=== PATIENT | male | born 1960 | race Caucasian/White ===

== ENCOUNTER 2019-01-29 00:38 | Outpatient (CLI) | payer OTHER, SELFPAY ==
[2019-01-29 09:46] LABS: ALT 53 U/L (12-78); AST 22 U/L (15-37); Alkaline Phosphatase 60 U/L (46-116); Anion Gap 5.6 mmol/L (3-11); BUN 18 mg/dL (7-18); Bilirubin, Total 0.7 mg/dL (0.2-1.0); CO2 30.4 mmol/L (21.0-32.0); CREATININE 0.78 mg/dL (0.70-1.30); Calcium 8.5 mg/dL (8.5-10.1); Calculated LDL 83 mg/dL; Chloride 104 mmol/L (98-107); Cholesterol 130 mg/dL (50-200); Glucose 108 mg/dL (70-100); HDL Cholesterol 39 mg/dL (40-60); Potassium 4.6 mmol/L (3.5-5.1); Sodium 140 mmol/L (136-145); Total Protein 6.9 g/dL (6.4-8.2); Triglyceride 42 mg/dL (30-150)
== END 2019-01-29 00:58 ==
PROVIDERS: PCP Family Medicine; Visit Provider Family Medicine
DX: F90.9 Attention-deficit hyperactivity disorder, unspecified type (principal); Z00.00 Encounter for general adult medical examination without abnormal findings; I10 Essential (primary) hypertension
CPT/HCPCS: 36415; 80053; 80061; 83721

== ENCOUNTER 2020-06-20 01:58 | Outpatient (CLI) | payer MEDICAID, SELFPAY ==
--- OUTSIDE RECORDS SUMMARY | 2020-06-20 01:59 | XMS_ITS ---
:1960 Author Organization [facility] Address [address] [place] [address] Care Team Providers Name Role Phone Marlin Escobar Unavailable Unavailable PROBLEMS Type Condition ICD9-CM Code [id number] Code Onset Condition SNO MED Code Dates Status Problem Onychia and 681.11 Active 70992276 paronychia of toe Problem Callus 700 Active 010210675 Problem Ingrown toenail 703.0 Active 4002 [id number] ALLERGIES Substance Reaction Event Type Date Status penicillin Unknown Non Drug Allergy Mar, Active Shellfish Unknown Non Drug Allergy Mar, Active ENCOUNTERS Encounter Location Date Diagnosis [facility] [address] [facility] Apr, [place] [address] [facility] Mar, [place] [address] [facility] [address] [facility] Feb, Ingrowing nail L60.[address] [place] [address] [facility] [address] [facility] Aug, [place] [address] [facility] [address] [facility] [address] Jun, [place] [address] [facility] Jun, Ingrown toenail 703.0 ; [place] [address] Onychia and paronychia of toe 681.11 an d Callus 700 [facility] [address] [facility] May, Ingrown toena il 703.0 ; [address] [place], [place] Onychia a nd paronychia [address] of toe 681.11 an d Callus 700 IMMUNIZATIONS No Known Immunizations SOCIAL HISTORY Qualifiers Date Former Smoker REASON FOR REFERRAL FUNCTIONAL STATUS PLAN OF CARE Activity Details Follow Up prn Reason: VITAL SIGNS Height 70 in 2020-03-26 Weight 235 lbs 2020-03-26 BMI 33.72 kg/m2 2020-03-26 Temperature 98.3 degrees Fahrenheit 2020-03-26 Heart Rate 83 /min 2020-03-26 Respiratory Rate 18 /min 2020-03-26 Oximetry 96 % 2020-03-26 Blood pressure systolic 132 mm Hg 2020-03-26 Blood pressure diastolic 88 mm Hg 2020-03-26 MEDICATIONS Medication Instructions Dosage Frequency Start End Duration Statu s Date Date Methylphenidate Orally Twice a 1 tablet on 12h Active HCl 20 MG day an empty stomach Nitrostat 0.4 MG as directed Act huy Aspirin 325 MG Orally Once a 1 tablet 24h 30 day(s) Active day Calcipotriene Externally 1 application 12h A ctive 0.005 % Twice a day Sulfamethoxazole-T Orally Twice a 1 tablet 12h 08 Mar, da y(s) Active rimethoprim day 2019 800-160 MG Clobetasol Externally 1 application 12h 10 day(s) Ac tive Propionate 0.05 % Twice a day Ibuprofen 200 MG Orally Three 1 tablet with 8h Active times a day food or milk as needed Tylenol 8 Hour Orally every 8 2 tablets as 8h Active Arthritis Pain 650 hrs needed MG Albuterol Sulfate Inhalation 1 puff as 4h A ctive 108 (90 Base) every 4 hrs needed MCG/ACT Atorvastatin Orally Once a 1 tablet 24h 30 day(s) Ac tive Calcium 40 MG day Loratadine 10 MG Orally Once a 1 tablet 24h 30 day(s ) Active day AmLODIPine Orally Once a 1 tablet 24h 30 day(s) Acti ve Besylate 5 MG day PROCEDURES Procedure Date Ordered Result Body Site REMOVAL OF NAIL BED Mar 26, 2020 COBAN TAPE ([id number]) Mar 26, 2020 RESULTS No Results REASON FOR VISIT fax note with edema as dx, post P&A, ingrowing toenail referral done, patient last seen by [facility] on 07/11/2014 for f/u P&A (R) hallux lateral border and f/u plantar fasciitis, NEW [facility]OD PATIENT, pt states he is here for ingrown toenail right great toenail both borders, pt states he tried trimming both sides, says the lateral border is the worst side, pt states there have been signs of blood and discharge on the lateral side but none on the medial side, pt states he is not currently having any signs of infection today, Requesting Alimeds, Payment, 2 wk fu, referral done, Patient states that the inserts are helping his feet, and his ingrown toenail is healing well, ingrown toenail, Referral Done,Pt states that his right great toenail is ingrown, states that it was infected but infection is now gone, Pt states that he has plantar fasciitis, Pt states that he has a hard time wearing shoes that are comfortable because his feet get painful SB, INGROWN TOENAIL, Referral Done- R/S Insurance Providers [facility]ly [facility] Health Member Patient Patient Patient Patient Patient Subscriber Subscriber Subscriber Group Insurance Plan Plan Plan Plan ID Relationship Address Phone Name Date of ID Name Date of No Type Insurance Insurance Insurance Coverage to Subscriber Address Phone Name Dates SELF PAY [address] STREET SELF PAY coty [place] 1960 [place] [address] INSURANCE MEDICAID [place] MEDICAID self STAN 1960 [id number] [place] 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
[2020-06-20 10:56] LABS: Hemoglobin A1C 6.3 % (<5.7)
[2020-06-20 11:36] LABS: ALT 50 U/L (16-63); AST 17 U/L (15-37); Albumin 3.9 g/dL (3.4-5.0); Alkaline Phosphatase 55 U/L (46-116); Anion Gap 7.7 mmol/L (3-11); BUN 24 mg/dL (7-18); Bilirubin, Total 0.3 mg/dL (0.2-1.0); CO2 28.3 mmol/L (21.0-32.0); CREATININE 0.93 mg/dL (0.70-1.30); Calcium 8.5 mg/dL (8.5-10.1); Calculated LDL 68 mg/dL (<100); Chloride 106 mmol/L (98-107); Cholesterol 112 mg/dL (<200); Glucose 110 mg/dL (74-106); HDL Cholesterol 33 mg/dL (40-60); Potassium 4.5 mmol/L (3.5-5.1); Sodium 142 mmol/L (136-145); Total Protein 6.9 g/dL (6.4-8.2); Triglyceride 59 mg/dL (<150)
== END 2020-06-20 02:18 ==
PROVIDERS: PCP Family Medicine; Visit Provider Family Medicine
DX: E11.9 Type 2 diabetes mellitus without complications (principal); Z13.220 Encounter for screening for lipoid disorders; Z13.228 Encounter for screening for other metabolic disorders
CPT/HCPCS: 36415; 80053; 80061; 83036

== ENCOUNTER 2020-07-04 03:11 | Outpatient (CLI) | payer MEDICAID, SELFPAY ==
--- NOTE | 2020-07-04 13:58 | DI.US_ITS ---
APPROVED REPORT EXAM: Comprehensive 2D, Doppler, and color-flow Echocardiogram Patient Location: Out-Patient Web Site Developer: Allison Santana RDCS (AE) Indications: Bicuspid Aortic valve, Dizziness Other Information Study Quality: Fair. Technically limited study due to inability to position patient. Conclusion Left Ventricle : The left ventricle is normal size. The left ventricular systolic function is normal. The left ventricular ejection fraction is within the normal range. There is normal left ventricular wall thickness. There is normal LV segmental wall motion. LVEF is 60%. Right Ventricle : The right ventricle is normal size. The right ventricular systolic function is norm al. The RVSP is 21.0mmHg. Aortic Valve : Aortic valve is bicuspid. No aortic regurgitation is present. No hemodynamically signi ficant valvular aortic stenosis. Great Vessels : The aortic root is normal in size. The ascending aorta is normal in size. Aortic arch is normal in caliber. IVC is normal in size and collapses >50% with inspiration. Please see remainder of study for further details. Compared to study from 04/29/2016, there is no significant change. Wall motion Left Ventricle The left ventricle is normal size. The left ventricular systolic function is normal. The left ventric ular ejection fraction is within the normal range. There is normal left ventricular wall thickness. T here is normal LV segmental wall motion. There is no ventricular septal defect visualized. LVEF is 60 %. Right Ventricle The right ventricle is normal size. The right ventricular systolic function is normal. The RVSP is 21 .0mmHg. Atria The left atrium size is normal. The right atrium size is normal. The interatrial septum is intact wit h no evidence for an atrial septal defect. Aortic Valve Aortic valve is bicuspid. No hemodynamically significant valvular aortic stenosis. No aortic regurgit ation is present. Mitral Valve Mild mitral annular calcification. No evidence of mitral valve stenosis. Trace mitral regurgitation. Tricuspid Valve The tricuspid valve is normal in structure. There is no tricuspid valve stenosis. Trace tricuspid reg urgitation. Pulmonic Valve Pulmonic valve is not well visualized. There is no pulmonic valvular stenosis. There is no pulmonic v alvular regurgitation. Great Vessels The aortic root is normal in size. The ascending aorta is normal in size. Aortic arch is normal in ca liber. IVC is normal in size and collapses >50% with inspiration. Pericardium There is no pericardial effusion. 2D Dimensions IVSD d PLAX 0.96 cm M: 0.6-1.2 LV Vol A2C d MOD 99.5 mL LVPW d PLAX 0.98 cm M: 0.6 - 1.2 LV Vol A4C d MOD 127.7 mL LVID d PLAX 4.22 cm M: 4.2 - 5.8 LA vol/ BSA A2C s A-L 20.1 mL/m2 LVDs 3.05 cm M: 2.5 - 4.0 LA vol/ BSA A4C s A-L 17.7 mL/m2 Ao Root d 2.93 cm M: 3.1 - 3.7 LA Vol/ BSA Biplane s A-L 19.0 mL/m2 RA Area A4C 14.58 cm2 LA Area A4C s MOD 15.32 cm2 RA Vol/ BSA A4C s A-L 18.9 mL/m2 LA Area A2C s MOD 16.18 cm2 Ao Asc Diam d 3.41 cm M: 2.6 - 3.4 LV EF A4C MOD 59.2 % LV EF Teichholz 53.8 % LV EF A2C MOD 59.2 % LVEF (Piña's) 60.01 % M: 52 - 72 LV EF Biplane MOD 60.0 % LV Volume 83.50 mL M: 62 - 150 SV 69.40 mL LV Volume Index 37.11 mL/m2 M: 34 - 74 SV Index 30.82 mL/m2 LV Vol Biplane MOD 115.6 mL FS 27.50 % M-Mode TAPSE 2.24 cm (M/F) >1.7 LV Diastology E/A Ratio 1.2 MV E Vmax 0.74 (0.4-1.3 m/s) MV A Vmax 0.60 (0.4-1.3 m/s) MV E/A Ratio 1.23 Aortic Valve LVOT Area 3.16 cm2 AoV Area Vmax 1.21 cm2 LVOT Vmax 0.78 m/s AoV Area/ BSA (Vmax) 0.54 cm2/m2 LVOT Mean Osbaldo. 0.56 m/s GET Mean Osbaldo. 1.17 cm2 LVOT Peak Grad 2.5 mmHg GET Mean Osbaldo. Index 0.52 cm2/m2 LVOT Mean Grad 1.4 mmHg LVOT VTI 0.159 m LVOT Diam s 2.00 cm AoV Vmax 2.05 m/s Velocity Ratio 0.38 AoV Mean Osbaldo. 1.51 m/s AoV Peak Grad 16.9 mmHg LVOT SV 50.11 mL AoV Mean Grad 10.0 mmHg AoV VTI 0.353 m AoV Area VTI 1.42 cm2 AoV Area/ BSA (VTI) 0.63 cm/m2 Mitral Valve MV DT 215 (160-240 msec) MV PHT 62 msec MV Area PHT 3.52 cm2 Pulmonary Valve PV Vmax 0.92 (0.5-1.5 m/s) RVOT Peak Gr. 1.95 mmHg PV Peak Grad 3.4 mmHg RVOT Mean Gr. 1.00 mmHg PV Mean Grad 1.9 mmHg RVOT VTI 0.169 m PV VTI 0.187 m RVOT Vmax 0.70 m/s Tricuspid Valve TR Peak Grad 18.0 mmHg TR Vmax 2.12 m/s RA Pressure 3.00 mmHg RVSP (TR) 21.0 mmHg
== END 2020-07-04 03:31 ==
PROVIDERS: PCP Family Medicine; Visit Provider Family Medicine
DX: Q23.1 Congenital insufficiency of aortic valve (principal); R42 Dizziness and giddiness
CPT/HCPCS: 93306

== ENCOUNTER 2020-11-05 03:24 | Outpatient (CLI) | payer MEDICAID, SELFPAY ==
[2020-11-05 15:39] LABS: Hemoglobin A1C 5.9 % (<5.7)
[2020-11-05 16:03] LABS: COMMENT (LAB VIEW ONLY) 276.74 mg/dL; Microalb ug/mg Crea 4.9 ug/mg Cr
== END 2020-11-05 03:25 | disposition home or self-care (01) ==
LOC: LBO 03:24
PROVIDERS: PCP Family Medicine; Visit Provider Family Medicine
DX: E11.9 Type 2 diabetes mellitus without complications (principal); I10 Essential (primary) hypertension; F90.9 Attention-deficit hyperactivity disorder, unspecified type
CPT/HCPCS: 36415; 82043; 82570; 83036

== ENCOUNTER 2021-05-31 00:39 | Outpatient (CLI) | payer MEDICAID, SELFPAY ==
--- NOTE | 2021-05-31 14:30 | DI.MRI_ITS ---
Exam(s) MR UPPER JOINT RT WO EXAM: MR UPPER JOINT RT WO CLINICAL HISTORY: CARPEL TUNNEL RT WRIST G56.01 G56.21. TECHNIQUE: Multiplanar multisequence MRI was performed. COMPARISON: None. FINDINGS: BONES: There is no fracture or contusion pattern. There is mild nonspecific marrow edema seen in the medial aspect of the lunate. JOINTS: The radiocarpal joint is unremarkable. The carpal joints are unremarkable. There do appear to be mild degenerative changes at the pisotriquetral joint. TENDONS: Flexors: There is fluid seen around some several of the flexor tendons in the volar aspect of the wri st. No soft tissue mass is appreciated. The median nerve appears grossly unremarkable. Extensors: Unremarkable. MUSCLES: Unremarkable. MEDIAN NERVE: Unremarkable on this noncontrast examination. ULNAR NERVE: Unremarkable on this noncontrast examination. SOFT TISSUES: There is a 0.9 x 0.4 cm ganglion cyst arising from the pisotriquetral joint. LIGAMENTS: Unremarkable. TRIANGULAR FIBROCARTILAGE: Unremarkable. OTHER: IMPRESSION: 1. Edema/fluid around the flexor tendons suspicious for tendinosis/tenosynovitis. No masses identifi ed. The median nerve appears grossly unremarkable. 2. 0.9 cm ganglion cyst arising from the pisotriquetral joint. 3. Mild nonspecific marrow edema in the lunate. No evidence of lunate collapse. DATA REPOSITORY:
== END 2021-05-31 00:59 ==
PROVIDERS: PCP Family Medicine; Visit Provider Orthopaedic Surgery
DX: G56.21 Lesion of ulnar nerve, right upper limb (principal); G56.01 Carpal tunnel syndrome, right upper limb; R93.7 Abnormal findings on diagnostic imaging of other parts of musculoskeletal system
CPT/HCPCS: 73221

== ENCOUNTER 2021-06-18 01:23 | Outpatient (CLI) | payer MEDICAID, SELFPAY ==
[2021-06-18 10:30] VITALS: BP 134/86; PULSE 68; RESP 18; TEMP 36.7; O2SAT 95
[2021-06-18 11:15] VITALS: BP 117/79; PULSE 70; RESP 18; TEMP 36.6; O2SAT 94
[2021-06-18 11:46] VITALS: BP 132/85; PULSE 79; RESP 14; TEMP 36.8; O2SAT 94
== END 2021-06-18 01:24 | disposition home or self-care (01) ==
LOC: INF 01:24
PROVIDERS: PCP Family Medicine; Visit Provider Family Medicine
DX: U07.1 COVID-19 (principal)
CPT/HCPCS: 96365

== ENCOUNTER 2021-11-07 02:29 | Outpatient (CLI) | payer MEDICAID, SELFPAY | END 2021-11-07 02:30 | disposition home or self-care (01) | LOC: LBO 02:29 | PROVIDERS: PCP Family Medicine; Visit Provider Family Medicine | DX: E11.9 Type 2 diabetes mellitus without complications (principal) | CPT/HCPCS: 36415; 83036 ==

== ENCOUNTER 2022-06-03 03:18 | Outpatient (CLI) | payer MEDICAID, SELFPAY ==
[2022-06-03 15:34] LABS: Hemoglobin A1C 6.1 % (<5.7)
[2022-06-03 16:08] LABS: BUN 21 mg/dL (7-18); CREATININE 0.9 mg/dL (0.70-1.30); Chloride 104 mmol/L (98-107); Estimated GFR 98.38 (mL/min/1.73m2); Glucose 99 mg/dL (74-106); Potassium 3.6 mmol/L (3.5-5.1); Sodium 142 mmol/L (136-145)
[2022-06-03 22:38] LABS: PSA, Diagnostic 1.4 ng/mL (<=3.5)
== END 2022-06-03 03:19 | disposition home or self-care (01) ==
PROVIDERS: PCP Family Medicine; Visit Provider Family Medicine
DX: E11.9 Type 2 diabetes mellitus without complications (principal); N40.0 Benign prostatic hyperplasia without lower urinary tract symptoms; I10 Essential (primary) hypertension
CPT/HCPCS: 36415; 80048; 83036; 84153

== ENCOUNTER 2023-01-08 03:03 | Outpatient (CLI) | payer SELFPAY ==
[2023-01-08 15:13] LABS: Hemoglobin A1C 6.2 % (<5.7)
[2023-01-08 16:30] LABS: ALT 48 U/L (16-63); AST 19 U/L (15-37); Alkaline Phosphatase 50 U/L (46-116); Anion Gap 7.3 mmol/L (3-11); BUN 26 mg/dL (7-18); Bilirubin, Total 0.5 mg/dL (0.2-1.0); CO2 28.7 mmol/L (21.0-32.0); Calcium 8.9 mg/dL (8.5-10.1); Chloride 105 mmol/L (98-107); Estimated GFR 86.16 (mL/min/1.73m2); Glucose 100 mg/dL (74-106); Potassium 3.8 mmol/L (3.5-5.1); Sodium 141 mmol/L (136-145); Total Protein 7.2 g/dL (6.4-8.2)
== END 2023-01-08 03:04 | disposition home or self-care (01) ==
PROVIDERS: PCP Family Medicine; Visit Provider Family Medicine
DX: Z00.00 Encounter for general adult medical examination without abnormal findings (principal); E11.9 Type 2 diabetes mellitus without complications; I10 Essential (primary) hypertension; E78.5 Hyperlipidemia, unspecified; I25.10 Atherosclerotic heart disease of native coronary artery without angina pectoris
CPT/HCPCS: 36415; 80053; 83036

== ENCOUNTER 2023-11-09 18:57 | Outpatient (REF) | payer OTHER, SELFPAY | END 2023-11-09 18:58 | disposition home or self-care (01) | LOC: LBN 18:57 | PROVIDERS: PCP Family Medicine; Visit Provider Nurse Practitioner Family | DX: L98.8 Other specified disorders of the skin and subcutaneous tissue (principal); L03.314 Cellulitis of groin; L40.9 Psoriasis, unspecified | CPT/HCPCS: 87077; 87102; 87206; 87070; 87205 ==

== ENCOUNTER 2024-02-01 03:28 | Outpatient (CLI) | payer OTHER, SELFPAY ==
[2024-02-01 16:52] LABS: COMMENT (LAB VIEW ONLY) 223.08 mg/dL; Microalb ug/mg Crea 6.4 ug/mg Cr
[2024-02-01 17:04] LABS: ALT 60 U/L (16-63); AST 24 U/L (15-37); Albumin 4.2 g/dL (3.4-5.0); Alkaline Phosphatase 47 U/L (46-116); BUN 15 mg/dL (7-18); Bilirubin, Total 0.98 mg/dL (0.2-1.0); Calculated LDL 63 mg/dL (<100); Chloride 102 mmol/L (98-107); Cholesterol 117 mg/dL (<200); Estimated GFR 85.63 (mL/min/1.73m2); Glucose 91 mg/dL (74-106); HDL Cholesterol 40 mg/dL (40-60); Potassium 3.7 mmol/L (3.5-5.1); Sodium 141 mmol/L (136-145); Total Protein 7.5 g/dL (6.4-8.2); Triglyceride 71 mg/dL (<150)
[2024-02-02 18:22] LABS: Hemoglobin A1C 6.1 % (<5.7)
== END 2024-02-01 03:29 | disposition home or self-care (01) ==
PROVIDERS: PCP Family Medicine; Visit Provider Family Medicine
DX: E11.9 Type 2 diabetes mellitus without complications (principal)
CPT/HCPCS: 36415; 80053; 80061; 82043; 82570; 83036

== ENCOUNTER 2024-07-28 04:09 | Outpatient (CLI) | payer OTHER, SELFPAY ==
[2024-07-28 17:08] LABS: Vitamin B12 1244 pg/mL (193-986)
== END 2024-07-28 04:10 | disposition home or self-care (01) ==
PROVIDERS: PCP Family Medicine; Visit Provider Family Medicine
DX: G62.9 Polyneuropathy, unspecified (principal)
CPT/HCPCS: 36415; 82607

== ENCOUNTER 2025-03-21 04:56 | Outpatient (CLI) | payer OTHER, SELFPAY ==
[2025-03-21 17:43] LABS: ALT 84 U/L (16-63); AST 34 U/L (15-37); Albumin 4.0 g/dL (3.4-5.0); Alkaline Phosphatase 45 U/L (46-116); Anion Gap 9.7 mmol/L (3-11); BUN 19 mg/dL (7-18); Bilirubin, Total 0.5 mg/dL (0.2-1.0); CO2 28.3 mmol/L (21.0-32.0); Calcium 9.2 mg/dL (8.5-10.1); Calculated LDL 52 mg/dL (<100); Chloride 103 mmol/L (98-107); Cholesterol 128 mg/dL (<200); Estimated GFR 85.10 (mL/min/1.73m2); Glucose 132 mg/dL (74-106); HDL Cholesterol 34 mg/dL (>or=40); Potassium 3.7 mmol/L (3.5-5.1); Sodium 141 mmol/L (136-145); TSH (W/Ref FT4) 2.78 uIU/mL (0.36-3.74); Total Protein 7.4 g/dL (6.4-8.2); Triglyceride 210 mg/dL (<150); Vitamin B12 807 pg/mL (193-986)
[2025-03-21 18:10] LABS: Hemoglobin A1C 6.5 % (<5.7)
[2025-03-21 23:09] LABS: PSA, Screening 1.3 ng/mL (<=4.5)
[2025-03-22 11:23] LABS: Hepatitis C Ab w Rflx HCV PCR Negative (Negative)
== END 2025-03-21 04:57 ==
LOC: LOS 03-22 04:57
PROVIDERS: PCP Family Medicine; Visit Provider Family Medicine
DX: I10 Essential (primary) hypertension (principal); Z00.00 Encounter for general adult medical examination without abnormal findings; E11.9 Type 2 diabetes mellitus without complications; E03.9 Hypothyroidism, unspecified; Z11.59 Encounter for screening for other viral diseases
CPT/HCPCS: 36415; 80053; 80061; 84153; 86803; 82607; 83036; 84443